=== PATIENT | female | born 1995 | race Caucasian/White ===

== ENCOUNTER 2020-04-17 07:13 | Emergency (ER) | payer OTHER ==
[~2020-04-17] VITALS: Ht 175.3 cm; Wt 83.0 kg
[~2020-04-17 07:13] MED LIST: NORCO 5-325 TA1 EACH PO
[2020-04-17 07:20] VITALS: BP 120/69
[2020-04-17] MEDS ORDERED: PENICILLIN VK500 MG PO (07:30)
[2020-04-17] MEDS ORDERED: IBUPROFEN 800800 M1 PO (07:30)
[2020-04-17] MEDS ORDERED: NORCO 5-325 TA1 EAC2 PO (07:30)
== END 2020-04-17 07:41 | disposition home or self-care (01) ==
LOC: M.ERS 07:13
DX: K04.7 Periapical abscess without sinus (principal)